=== PATIENT | female | born 2000 | race Caucasian/White ===

== ENCOUNTER 2023-05-24 05:45 | Emergency (ER) | payer MEDICAID ==
[~2023-05-24] VITALS: Ht 160 cm; Wt 117.9 kg
[2023-05-24 05:53] VITALS: BP_SYST 132; PULSE 94; RESP 18; TEMP 98.3; O2SAT 99
[2023-05-24] MEDS ORDERED: EPINEPHRINE HCL/PF 1 MG/ML AMP IM ONE (06:15)
[2023-05-24] MEDS ORDERED: PRED20TA PO (07:15)
[2023-05-24 07:41] VITALS: BP_SYST 128; PULSE 85; RESP 18; TEMP 97.7; O2SAT 96
== END 2023-05-24 07:42 | disposition home or self-care (01) ==
LOC: SED 05:45
DX: L50.9 Urticaria, unspecified (principal); R21 Rash and other nonspecific skin eruption; Z79.899 Other long term (current) drug therapy
CPT/HCPCS: 99283; 81025; 96372; J0171

== ENCOUNTER 2023-11-15 | Emergency (ER) | payer MEDICAID ==
[~2023-11-15] VITALS: Ht 162.6 cm; Wt 117.9 kg
[~2023-11-15] MED LIST: PRED20TA PO
[2023-11-15 00:10] VITALS: BP_SYST 133; PULSE 111; RESP 20; TEMP 97; O2SAT 97
[2023-11-15 00:28] VITALS: BP_SYST 133; PULSE 111; RESP 20; TEMP 97; O2SAT 97
== END 2023-11-15 00:28 | disposition home or self-care (01) ==
LOC: SED
DX: Z00.00 Encounter for general adult medical examination without abnormal findings (principal); E11.9 Type 2 diabetes mellitus without complications; Z79.899 Other long term (current) drug therapy
CPT/HCPCS: 99281